=== PATIENT | female | born 1935 | race Caucasian/White ===

== ENCOUNTER 2016-09-26 11:49 | Emergency (ER) | payer MEDICARE, BC ==
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
--- OUTSIDE RECORDS SUMMARY | 2016-09-26 12:03 | XMS REPORT | Continuity of Care Document ---
:1935 Author Organization [facility] ([facility]) Address [address] [place] [address] Phone [phone] Care Team Providers Name Role Phone Eileen Miller Primary Care Provider [phone] Source Comments This disclosure is being made pursuant to the Care Everywhere program, applicable federal and state laws, and may not contain all informaitonavailable regarding this patient.[facility] ([facility]) Active Allergies and Adverse Reactions Allergen Noted Date Severity Reactions Comments Acetaminophen 10/07/2012 Nausea & Vomiting Only with the 500 mg tabs/daughter Hydromorphone 01/28/2013 OTHER Clinician reports acute delirium Morphine 05/27/2012 Rash Penicillins 05/27/2012 Rash Current Medications Prescription Sig. Disp. Refills Start Date End Date Status calcitriol 0.25 mcg Take 0.25 mcg by Active capsule mouth 3 times weekly. Cholecalciferol, Take 10,000 Units by Active Vitamin D3, (MAXIMUM mouth every week. D3) 10,000 unit cap simvastatin 20 mg Take 20 mg by mouth Active tablet every evening. tamsulosin (FLOMAX) Take 0.4 mg by mouth Active 0.4 mg ER capsule daily. PARoxetine (PAXIL) 20 Take 20 mg by mouth Active mg tablet daily. zolpiDEM 10 mg tablet Take by mouth at Active bedtime as needed. Indications: SLEEP-ONSET INSOMNIA amLODIPine 5 mg tablet Take 5 mg by mouth 2 Active times daily. mirtazapine 15 mg Take 15 mg by mouth Active tablet at bedtime as needed. multivitamin tablet Take 1 Tab by mouth Active every Friday, Friday, Friday. docusate 100 mg Take 1 Cap by mouth 2 60 Cap 1 01/26/2013 Active capsule times daily. Indications: CONSTIPATION metoPROLol tartrate 25 Take 1 Tab by mouth 60 Tab 1 01/26/2013 Active mg tablet every 12 hours. Indications: Afib sennosides 8.6 mg Take 1 Tab by mouth 30 Tab 1 01/26/2013 Active tablet daily. Indications: CONSTIPATION warfarin 5 mg tablet Take 1 Tab by mouth 30 Tab 1 01/26/2013 Active daily. Indications: Afib lisinopril 40 mg Take 40 mg by mouth Active tablet daily. pantoprazole 40 mg EC Take 40 mg by mouth Active tablet daily. potassium citrate 10 Take 1 Tab by mouth 2 60 Tab 11 09/15/2013 Active mEq XR tablet times daily. Indications: CALCIUM OXALATE RENAL CALCULI gabapentin 300 mg Take 300 mg by mouth Active capsule 3 times daily ipratropium 0.5 mg/2.5 Use 2.5 mL by Active mL nebulizer solution inhalation every 4 hours as needed Active Problems Problem Noted Date CKD (chronic kidney disease) 03/12/2013 Hyperparathyroidism 03/12/2013 Wound, open, abdominal wall, anterior 02/16/2013 Small bowel obstruction due to postoperative adhesions 02/16/2013 Diarrhea 02/16/2013 Open wound of abdominal wall, anterior, complicated 01/30/2013 Wound infection after surgery 01/27/2013 Cellulitis 01/27/2013 Atrial fibrillation 01/24/2013 Delirium 01/24/2013 Ureteral stricture 01/20/2013 Nephrolithiasis 06/24/2012 Solitary kidney, acquired 06/24/2012 Overview: Left side functional HTN (hypertension) 06/24/2012 Hypercholesterolemia 06/24/2012 Social History Tobacco Use Types Packs/Day Years Used Date Former Smoker Cigarettes Smokeless Tobacco: Never Used Tobacco Cessation:Counseling Given: Yes Comments: Alcohol Use Drinks/Week oz/Week Comments No Last Filed Vital Signs Vital Sign Reading Time Taken Blood Pressure 176/79 04/24/2016 2:18 PM HEATER FURNACE Pulse 101 04/24/2016 2:18 PM HEATER FURNACE Temperature 35.8 C (96.4 F) 04/24/2016 2:18 PM HEATER FURNACE Respiratory Rate 18 02/16/2013 8:00 AM CDT Height 1.52 m (4' 11.84") 04/24/2016 2:18 PM HEATER FURNACE Weight 85.6 kg (188 lb 11.4 oz) 04/24/2016 2:18 PM HEATER FURNACE Body Mass Index 37.05 04/24/2016 2:18 PM HEATER FURNACE Oxygen Saturation 95% 02/16/2013 8:00 AM CDT Plan of Care Health Maintenance Due Date Last Done Comments Hepatitis B Vaccine (1 of 3 - Primary Series) 1935 Tdap Vaccine 1948 Td Vaccine 12/11/1955 Mammogram 1977 Colonoscopy 1987 Zoster Vaccine 1997 Osteoporosis Screening (DXA Bone Density) 2002 Pneumococcal Vaccine (1 of 2 - PCV13) 2002 Influenza Vaccine: Seasonal (#1) 12/04/2015 Lipid Disorder Screening 01/24/2018 01/24/2013 Results from Last 3 Months Not on file
[2016-09-26] MEDS ORDERED: ACETAMINOPHEN 325 MG TABLET PO ONE (12:54)
[2016-09-26] MEDS ORDERED: ACETAMINOPHEN 325 MG TABLET ONE (12:56)
[2016-09-26 13:35] VITALS: BP 150/90
== END 2016-09-26 14:32 | disposition home or self-care (01) ==
LOC: ER 11:49
PROC: 0JQ10ZZ Repair Face Subcutaneous Tissue and Fascia, Open Approach (ICD-10-PCS; principal; 2016-09-26)
DX: S01.81XA Laceration without foreign body of other part of head, initial encounter (principal); W01.0XXA Fall on same level from slipping, tripping and stumbling without subsequent striking against object, initial encounter; Y93.01 Activity, walking, marching and hiking; Y92.008 Other place in unspecified non-institutional (private) residence as the place of occurrence of the external cause; Z87.440 Personal history of urinary (tract) infections; Z85.41 Personal history of malignant neoplasm of cervix uteri

== ENCOUNTER 2016-10-01 14:09 | Emergency (ER) | payer MEDICARE, BC ==
[2016-10-01 14:17] VITALS: BP 152/110
--- OUTSIDE RECORDS SUMMARY | 2016-10-01 15:02 | XMS REPORT | Continuity of Care Document ---
:1935 Author Organization [facility] ([facility]) Address [address] [place] [address] Phone [phone] Care Team Providers Name Role Phone Eileen Miller Primary Care Provider [phone] Source Comments This disclosure is being made pursuant to the Care Everywhere program, applicable federal and state laws, and may not contain all informaitonavailable regarding this patient.[facility] ([facility]) Active Allergies and Adverse Reactions Allergen [...] Taken Blood Pressure 176/79 04/24/2016 2:18 PM RESTAURANT RECRUITER Pulse 101 04/24/2016 2:18 PM RESTAURANT RECRUITER Temperature 35.8 C (96.4 F) 04/24/2016 2:18 PM RESTAURANT RECRUITER Respiratory Rate 18 02/16/2013 8:00 AM CDT Height 1.52 m (4' 11.84") 04/24/2016 2:18 PM RESTAURANT RECRUITER Weight 85.6 kg (188 lb 11.4 oz) 04/24/2016 2:18 PM RESTAURANT RECRUITER Body Mass Index 37.05 04/24/2016 2:18 PM RESTAURANT RECRUITER Oxygen Saturation 95% 02/16/2013 8:00 AM CDT [...]
== END 2016-10-01 14:29 | disposition home or self-care (01) ==
LOC: ER 14:09
DX: Z48.02 Encounter for removal of sutures (principal)

== ENCOUNTER 2017-04-03 11:46 | Emergency (ER) | payer MEDICARE, BC ==
--- NOTE | 2017-04-03 13:10 | ERNOTE ---
Medical Problem HPI - General Chief Complaint: General Assessment Time Seen by Provider: 04/03/17 13:10 - Immun/Allergies/Home Medications Immunizations: IMMUNIZATION HX Immunizations Up to Date Yes History of Influenza Vaccine Yes Hx Pneumococcal Vaccination Yes Allergies/Adverse Reactions: Allergies morphine Adverse Reaction (Intermediate, Verified 09/26/16 11:57) Hives Penicillins Adverse Reaction (Intermediate, Verified 09/26/16 11:57) Hives acetaminophen [From Tylenol Extra Strength] Adverse Reaction (Mild, Verified 11:57) GI UPSET EXTRA STRENGTH CAUSES GI UPSET, CAN TOLERATE REG STRENGTH Tetanus Vaccines and Toxoid [Tetanus] Adverse Reaction (Mild, Verified 09/26/16 11:57) Hives Home Medications: HOME MEDICATIONS Multivit-Min/FA/Lycopen/Lutein [[facility]] 1 tab PO DAILY tablet 11/16/14 [Last Taken Unknown] Pantoprazole Sodium 40 mg PO DAILY #0 11/16/14 [Last Taken 08/19/15 09:00] Simvastatin [Zocor] 20 mg PO HS #0 11/16/14 [Last Taken 08/18/15] amLODIPine BESYLATE [Norvasc] 5 mg PO BID #0 11/16/14 [Last Taken Unknown] Aspirin [Aspirin EC] 81 mg PO DAILY 08/19/15 [Last Taken 08/19/15 09:00] Donepezil HCl [Aricept] 5 mg PO DAILY 08/19/15 [Last Taken 08/19/15 09:00] Gabapentin [Neurontin] 300 mg PO HS 08/19/15 [Last Taken 08/18/15 21:00] PARoxetine HCL [Paxil] 10 mg PO DAILY 08/19/15 [Last Taken 08/19/15] Warfarin Sodium [Coumadin] 5 mg PO DAILY 08/20/15 [Last Taken Unknown] Acetaminophen [Tylenol] 650 mg PO QID PRN 08/31/15 [Last Taken Unknown] Omeprazole [Prilosec] 40 mg PO DAILY #30 cap 08/31/15 [Last Taken Unknown] Ondansetron HCl [Zofran] 4 mg PO Q4H PRN 04/02/16 [Last Taken Unknown] Cholestyramine/Aspartame [Questran Light Packet] 4 gm PO BIDWM #60 packet 11/30/ 16 [Last Taken Unknown] clonazePAM [Klonopin] 0.25 mg PO HS #.1 tablet 04/03/16 [Last Taken Unknown] - History of Present History Narrative: Patient was at the dentist and found to have elevated blood pressures and was told to come to the ER. Her blood pressures are better now, she denies any headache or other symptoms Review of Systems - Review of Systems Constitutional: Absent: recent illness, fever EYE: Absent: vision changes ENT: Absent: nose congestion, sore throat Respiratory: Absent: shortness of breath, cough Cardiology: Absent: chest pain Gastrointestinal/Abdominal: Absent: nausea, vomiting, abdominal pain Genitourinary: Present: no symptoms reported Musculoskeletal: Absent: back pain Skin: Absent: rash Neurological: Absent: headache, weakness, numbness - Patient's Past Medical History Patient History - Medical: Hypothyroidism, Renal Disease, GERD, Headache, Hypothyroidism, Migraines, Osteoarthritis, Renal Disease, UTI'S Patient History - Cardiac/Respiratory: Hypertension Patient History - Cancer: Cervical Patient History - Surgical Procedures: Cholecystectomy, Hysterectomy, Total Knee Replacement, Other, Other Patient History - Other: None - Family History Mother Family History - Medical: Family History - Cardiac/Respiratory: Hypertension, Myocardial Infarction Father Family History - Medical: Family History - Cardiac/Respiratory: Hypertension, Myocardial Infarction - Social History Living Situations: home Abuse History: No History of abuse Psych History: No pertinent hx, Current tx/ever been on anti-depressants or anti -anxiety meds Smoking Status: Never smoker Have you smoked in the past 12 months: No Do you dip or chew tobacco: No Alcohol Use: none Drug Use: none - Immunizations Immunizations Up to Date: Yes Hx Pneumococcal Vaccination: Yes History of Influenza Vaccine: Yes Physical Exam - Physical Exam General Appearance: Present: wd/wn, alert, no apparent distress, obese Respiratory: Present: no respiratory distress, normal breath sounds, no accessory muscle use, lungs clear Cardiovascular/Chest: Present: regular rate, rhythm, no murmur Neurological Exam: Present: alert, oriented, normal mood/affect Skin Exam: Present: normal color, warm/dry ED Progress - Vital Signs Patient's Vital Signs:: I have reviewed the patient's vital signs. Vital Signs: Vital Signs 04/03/17 11:56 Temperature 36.5 C Pulse Rate 100 Respiratory 16 Rate Blood Pressure 154/96 O2 Sat by Pulse 98 Oximetry - Progress/Reassessment Chief Complaint: General Assessment Departure Clinical Impression: Hypertension Qualifiers: Hypertension type: essential hypertension Qualified Code(s): I10 - Essential ( primary) hypertension - Departure Disposition: Home self-care Condition: Good Instructions: Hypertension, [id number] Additional Instructions: call your doctor for follow up Referrals: Eileen Miller MD [Primary Care Provider] -
[2017-04-03 13:22] VITALS: BP 149/89
== END 2017-04-03 13:22 | disposition home or self-care (01) ==
LOC: ER 11:46
DX: I10 Essential (primary) hypertension (principal); Z87.440 Personal history of urinary (tract) infections; Z85.41 Personal history of malignant neoplasm of cervix uteri

== ENCOUNTER 2020-07-23 16:58 | Observation (INO) ==
[2020-07-23] MEDS ORDERED: NORMAL SALINE 1,000 ML IV ONE (17:09)
[2020-07-23 17:30] LABS: Hematocrit 39.7 % (37.0-47.0); Hemoglobin 12.1 gm/dL (12.5-16.0); Mean Cell Volume 96.8 fl (78-100); Mean Corpuscular Hemoglobin 29.5 pg (27-31); Mean Corpuscular Hgb Conc 30.5 g/dl (32-36); Mean Platelet Volume 9.5 fl (8-12.5); Neutrophil # 3.3 K/mm3 (1.3-6.0); Neutrophil % 53.5 % (42-75.0); Platelet Count 194 K/mm3 (150-450); Red Cell Distribution Width 15.1 % (11.5-14.0); White Blood Count 6.1 K/mm3 (4.0-10.5)
--- NOTE | 2020-07-23 17:33 | ERNOTE ---
Back Pain ER HPI Date of Service: 07/23/20 Presenting Symptoms: hx chronic back pain Time Seen by Provider: 07/23/20 16:59 Source: patient Exam Limitations: clinical condition Immunizations: IMMUNIZATION HX Immunizations Up to Date Yes History of Influenza Vaccine Yes Hx Pneumococcal Vaccination Yes Allergies/Adverse Reactions: Allergies Penicillins Allergy (Intermediate, Verified 07/11/20 15:37) Hives Tetanus Vaccines and Toxoid [Tetanus] Allergy (Mild, Verified 07/11/20 15:37) Hives diphenhydramine [From Tylenol PM] Allergy (Verified 07/11/20 15:37) Can take regular tylenol but not PM, not allergic to Benadryl, only Tylenol PM morphine Adverse Reaction (Intermediate, Verified 07/11/20 15:37) Other Patient reports she "goes bananas" Home Medications: HOME MEDICATIONS acetaminophen 500 mg tablet 1,000 mg PO BID tab 01/29/18 [Last Taken Unknown] bisacodyl 10 mg rectal suppository 10 mg [place] DAILY PRN #5 ea 08/16/19 [Last Taken Unknown] polyethylene glycol 3350 17 gram/dose oral powder 17 g PO DAILY PRN #119 g 08/15 [Last Taken Unknown] sennosides 8.6 mg tablet 8.6 mg PO HS PRN #30 tab 08/16/19 [Last Taken Unknown] oxyCODONE HCL/ACETAMINOPHEN [Percocet 5 MG/325 MG] 1 tab PO Q4H PRN #10 tab 12/20/19 [Last Taken Unknown] melatonin 1 mg tablet 2 mg PO HS PRN #180 tab 12/23/19 [Last Taken Unknown] clonazepam 0.5 mg tablet 0.25 mg PO DAILY tab 01/20/20 [Last Taken Unknown] ciprofloxacin HCl 500 mg tablet 500 mg PO BID #14 tab 04/24/20 [Last Taken Unknown] clindamycin HCl 150 mg capsule 300 mg PO QID cap 04/24/20 [Last Taken Unknown] warfarin 2.5 mg tablet 2.5 mg PO Q OTHER DAY #30 tab 05/31/20 [Last Taken Unknown] warfarin 3 mg tablet 3 mg PO Q OTHER DAY #30 tab 05/31/20 [Last Taken Unknown] aspirin 81 mg tablet,delayed release 81 mg PO DAILY #30 tab 06/14/20 [Last Taken Unknown] citalopram 20 mg tablet 20 mg PO QAM #90 tab 06/14/20 [Last Taken Unknown] donepezil 5 mg tablet 5 mg PO QAM #30 tab 06/14/20 [Last Taken Unknown] famotidine 20 mg tablet 20 mg PO DAILY #30 tab 06/14/20 [Last Taken Unknown] furosemide 20 mg tablet 20 mg PO QAM PRN #90 tab 06/14/20 [Last Taken Unknown] gabapentin 300 mg capsule 300 mg PO HS #90 cap 06/14/20 [Last Taken Unknown] mirtazapine 15 mg tablet 15 mg PO QAM #90 tab 06/14/20 [Last Taken Unknown] simvastatin 20 mg tablet 20 mg PO HS #90 tab 06/14/20 [Last Taken Unknown] trazodone 50 mg tablet 50 mg PO HS #90 tab 06/14/20 [Last Taken Unknown] metoprolol succinate 100 mg tablet,extended release 24 hr 100 mg PO QAM #30 tab 06/15/20 [Last Taken Unknown] potassium citrate 10 mEq (1,080 mg) tablet,extended release 10 meq PO BID #60 tab 06/15/20 [Last Taken Unknown] tamsulosin 0.4 mg capsule 0.4 mg PO DAILY #30 cap 06/15/20 [Last Taken Unknown] HYDROcodone/ACETAMINOPHEN [Hydrocodon-Acetaminophen 5-325] 1 ea PO Q6H PRN #24 tab 07/11/20 [Last Taken Unknown] amlodipine 5 mg tablet 5 mg PO BID #30 tab 07/13/20 [Last Taken Unknown] Narrative: Patient presents to the ED for left low back pain. THis has been a problem for her for weeks but has been worse over the last couple of hours. Was seen here for this same thing on the of this month and had extensive w/u. Has been having daily, on-going pain ever since but worse today. No fall or injury. No acute focal N/T/W. Pain worse with movement. Denies injury. No CP or SOB. No fever. No trouble with urination. EMS called, 100mcg Sublimaze given. Timing: Reports: constant Quality/Severity: Reports: severe Location of pain: Reports: lower back. Denies: radiating to rt thigh/leg, radiating to lf thigh/leg Activities at Onset: Reports: none Recent Injury?: Reports: no Possible Precipitating Factor: Reports: none Modifying Factors - (Improves): Reports: nothing Modifying Factors - (Worsens): Reports: movement to right, movement to left Associated Symptoms: Denies: fever/chills, constipation/incontinence, numbess/weakness in legs Prior Treament: Reports: recently seen, similar symptoms before Review of Systems - Review of Systems Constitutional: Absent: fever ENT: Absent: sore throat Respiratory: Absent: shortness of breath Cardiology: Absent: chest pain Gastrointestinal/Abdominal: Absent: abdominal pain Genitourinary: Absent: dysuria Musculoskeletal: Present: See HPI Neurological: Absent: weakness All Other Systems: All systems neg except as marked Medical History (Last Reviewed 07/23/20 @ 17:31 by Brandon Rodriguez MD) Abnormal EKG Onset Date: ~08/12/14 Atrial fibrillation Onset Date: ~02/23/13 Cervical neoplasm Onset Date: Unknown Chronic renal failure, stage 3 (moderate) Onset Date: ~02/05/12 Colonic polyp Onset Date: Unknown Constipation Onset Date: ~07/09/12 DJD (degenerative joint disease) Onset Date: Unknown right knee Depressive disorder Onset Date: ~07/09/12 Dysphagia Onset Date: ~05/17/13 Essential hypertension Onset Date: Unknown Headache Onset Date: ~09/14/12 Humerus fracture Onset Date: Unknown humeral head fracture- right Hydronephrosis Onset Date: ~06/2012 Hyperlipemia Onset Date: Unknown Influenza vaccine refused wants to receive at later date. 02/17/18 Joint pain Onset Date: Unknown Kidney stone Onset Date: ~2012 left ureteral stone Kidney stones Onset Date: ~2012 left ureteral stone Knee pain Onset Date: ~10/11/14 s/p replacement Leg pain Onset Date: ~02/05/12 Malignant neoplasm of uterus Onset Date: Unknown Nausea Onset Date: ~06/25/12 Osteoarthritis Onset Date: Unknown Sciatica Onset Date: Unknown Sciatica Onset Date: Unknown Spinal stenosis Onset Date: Unknown Urinary tract infection Onset Date: ~09/14/12 Uterine neoplasm Onset Date: Unknown Surgical History: Surgical History (Last Reviewed 07/23/20 @ 17:31 by Brandon Rodriguez MD) H/O arthroscopic knee surgery Onset Date: ~08/22/14 right knee arthroscopic by Dr. Bryan H/O colonoscopy Onset Date: Unknown approx. 7 yrs ago per pt H/O cystoscopy Onset Date: ~2003 2003, 10/28/2012 H/O dilation and curettage Onset Date: Unknown H/O nephrolithotomy with removal of calculi Onset Date: ~1984 1984 and 1985 H/O ureterostomy Onset Date: ~2012 with dilation and stent placement History of cholecystectomy Onset Date: ~1981 History of hysterectomy Onset Date: ~1967 S/P ureteral stent placement Onset Date: ~2012 x 2 Family History: Family History (Last Reviewed 07/23/20 @ 17:31 by Brandon Rodriguez MD) Mother Hypertension Father Hypertension Social History: (Last Reviewed 07/23/20 @ 17:31 by Brandon Rodriguez MD) Social History: adopted: No foster care: No group home: No Marital status: / lives independently: No household members: family caregiver/support person: No current occupational status: retired Service: No Tobacco: Smoking Status: Former smoker Alcohol: alcohol intake: former Substance Use: substance use type: does not use Dietary Habits: caffeine: Yes Physical Exam - Physical Exam General Appearance: Present: alert, no apparent distress Head Exam: Present: normal inspection, no evidence of injury Eye Exam: Normal inspection: bilateral, PERRL: bilateral Ears, Nose, Throat: Present: normal ENT inspection Neck: Present: normal inspection Respiratory: Present: no respiratory distress, normal breath sounds Cardiovascular/Chest: Present: normal peripheral pulses, bradycardia Gastrointestinal/Abdominal: Present: normal bowel sounds, nontender, nondistended, soft Back Exam: Present: CVA tenderness (L), other - significant muscular tendneress with palpation of left low back. Absent: vertebral tenderness Extremity Exam: Present: non-tender Neurological Exam: Present: alert, other - generalized weakness but no acute unilateral focal motor or sensory deficits Skin Exam: Present: normal color, warm/dry Progress - Results and Orders Patient's Lab Results:: I have reviewed the patient's lab results. - Vital Signs Patient's Vital Signs:: I have reviewed the patient's vital signs. Vital Signs: Vital Signs 07/23/20 17:01 Temperature 36.5 C Pulse Rate 59 L Respiratory Rate 16 Blood Pressure 100/55 O2 Sat by Pulse Oximetry 96 - EKG EKG #1 EKG: atrial fibrillation EKG read: Interp. by me EKG Comments: A fib rate [address] ectopy. Non-specific ST/T wave changes, no STEMI - CT/Ultrasound CT/Ultrasound Narrative: I reviewed the official radiology report for CT abd/pelvis - Progress/Reassessment Chief Complaint: Back Pain Progress Note-Subjective: 07/23/20 18:45 patient has intractable low back pain, no suggestion of cauda equina syndrome. She is unable to ambulate here d/t pain despite repeated doses of Fentanyl. Given she lives at home alone, she cannot go home. She would be agreeable to skilled if necessary. She cannot go home d/t inability to ambulate. Patient and daughter agreeable. Departure Clinical Impression: Intractable low back pain, Gait instability, Chronic renal failure - Departure Disposition: Still a patient Condition: Fair Referrals: Eileen Miller MD [Primary Care Provider] -
[2020-07-23 17:43] LABS: Urine Appearance Clear (CLEAR); Urine Bilirubin Negative (NEGATIVE); Urine Blood Negative /ul (NEGATIVE); Urine Color Yellow; Urine Ketone Negative (NEGATIVE); Urine Specific Gravity 1.015 SP.GR. (1.005-1.010); Urine pH 5.5 pH (5.0-7.0)
[2020-07-23 17:44] LABS: Urine Bacteria None Seen; Urine Nitrite Negative (NEGATIVE); Urine Protein Negative (NEGATIVE); Urine RBC None Seen /hpf (0-5); Urine Urobilinogen Normal (NORMAL); Urine WBC None Seen /hpf (0-5)
[2020-07-23 17:47] LABS: ALT 46 U/L (19-67); AST 39 U/L (0-48); Albumin * 3.1 gm/dl (3.4-5.0); Alkaline Phosphatase * 91 U/L (50-170); Anion Gap 14.2 mmol/L (6.8-13.8); BUN/Creatinine Ratio 12.9 (9.0-21.6); Bilirubin, Total 0.7 mg/dL (0.0-1.1); Blood Urea Nitrogen 21 mg/dL (3-23); Ca. Corrected For Albumin 9.5 mg/dL (8.4-10.2); Calcium * 9.1 mg/dL (7.9-10.9); Carbon Dioxide 25.2 mmol/L (24-32.6); Chloride 108 mmol/L (97-106); Glucose * 117 mg/dL (70-110); Lipase 86 U/L (73-393); Potassium 4.4 mmol/L (3.4-4.6); Sodium 143 mmol/L (132-142); Total Protein 7.4 gm/dL (6.2-8.2); Troponin I Less than 0.017 ng/mL (0.00-0.10)
[2020-07-23 18:01] LABS: INR 2.12 INR (0.92-1.08); Prothrombin Time (Patient) 21.3 Seconds (9.1-10.7)
[2020-07-23] MEDS ORDERED: fentaNYL CITRATE/PF 50 MCG/ML AMPUL IV ONE ×2 (18:21→18:38)
[2020-07-24] MEDS ORDERED: FUROSEMIDE 20 MG TABLET PO PRN (08:24)
[2020-07-24] MEDS ORDERED: POLYETHYLENE GLYCOL 3350 119 GM BTL PO PRN (08:24)
[2020-07-24] MEDS ORDERED: clonazePAM 0.5 MG TABLET PO PRN (08:24)
[2020-07-24] MEDS ORDERED: HYDROcodone/ACETAMINOPHEN 1 EACH TABLET PO PRN (08:24)
[2020-07-24] MEDS ORDERED: MELATONIN 3,000 MCG TABLET PO PRN (08:46)
[2020-07-24] MEDS ORDERED: ACETAMINOPHEN 500 MG TABLET PO PRN (08:51)
[2020-07-24] MEDS ORDERED: ASPIRIN 81 MG TABLET.DR PO SCH (09:00)
[2020-07-24] MEDS ORDERED: MIRTAZAPINE 15 MG TABLET PO SCH (09:00)
[2020-07-24] MEDS ORDERED: CITALOPRAM HYDROBROMIDE 20 MG TABLET PO SCH (09:00)
[2020-07-24] MEDS ORDERED: METOPROLOL SUCCINATE 100 MG TABLET.SA PO SCH (09:00)
[2020-07-24] MEDS ORDERED: FAMOTIDINE 20 MG TABLET PO SCH (09:00)
[2020-07-24] MEDS ORDERED: DONEPEZIL HCL 5 MG TABLET PO SCH (09:00)
[2020-07-24] MEDS ORDERED: ACETAMINOPHEN 500 MG TABLET PO SCH (09:00)
[2020-07-24] MEDS ORDERED: amLODIPine BESYLATE 5 MG TABLET PO SCH (09:00)
[2020-07-24] MEDS ORDERED: POTASSIUM BICARBONATE/CIT AC 25 MEQ TABLET.EFF PO SCH (09:30)
--- NOTE | 2020-07-24 11:52 | HPDIS ---
Chief Complaint - Chief Complaint Date of Service: 07/24/20 Time of Service: 08:00 Chief Complaint: Weakness, low back pain Medical History (Last Reviewed 07/23/20 @ 21:01 by Shavon Michael RN) Abnormal EKG Onset Date: ~08/12/14 Atrial fibrillation Onset Date: ~02/23/13 Cervical neoplasm Onset Date: Unknown Chronic renal failure, stage 3 (moderate) Onset Date: ~02/05/12 Colonic polyp Onset Date: Unknown Constipation Onset Date: ~07/09/12 DJD (degenerative joint disease) Onset Date: Unknown right knee Depressive disorder Onset Date: ~07/09/12 Dysphagia Onset Date: ~05/17/13 Essential hypertension Onset Date: Unknown Headache Onset Date: ~09/14/12 Humerus fracture Onset Date: Unknown humeral head fracture- right Hydronephrosis Onset Date: ~06/2012 Hyperlipemia Onset Date: Unknown Influenza vaccine refused wants to receive at later date. 02/17/18 Joint pain Onset Date: Unknown Kidney stone Onset Date: ~2012 left ureteral stone Kidney stones Onset Date: ~2012 left ureteral stone Knee pain Onset Date: ~10/11/14 s/p replacement Leg pain Onset Date: ~02/05/12 Malignant neoplasm of uterus Onset Date: Unknown Nausea Onset Date: ~06/25/12 Osteoarthritis Onset Date: Unknown Rotator cuff arthropathy of right shoulder Sciatica Onset Date: Unknown Sciatica Onset Date: Unknown Spinal stenosis Onset Date: Unknown Urinary tract infection Onset Date: ~09/14/12 Uterine neoplasm Onset Date: Unknown Surgical History: Surgical History (Last Reviewed 07/23/20 @ 21:01 by Shavon Michael RN) H/O arthroscopic knee surgery Onset Date: ~08/22/14 right knee arthroscopic by Dr. Bryan H/O colonoscopy Onset Date: Unknown approx. 7 yrs ago per pt H/O cystoscopy Onset Date: ~2003 2003, 10/28/2012 H/O dilation and curettage Onset Date: Unknown H/O nephrolithotomy with removal of calculi Onset Date: ~1984 1984 and 1985 H/O ureterostomy Onset Date: ~2012 with dilation and stent placement History of cholecystectomy Onset Date: ~1981 History of hysterectomy Onset Date: ~1967 S/P ureteral stent placement Onset Date: ~2012 x 2 Family History: Family History (Last Reviewed 07/23/20 @ 21:01 by Shavon Michael RN) Mother Hypertension Father Hypertension Social History: (Last Reviewed 07/23/20 @ 21:01 by Shavon Michael RN) Social History: adopted: No foster care: No chcf: No Marital status: / lives independently: No household members: family caregiver/support person: No current occupational status: retired Service: No Tobacco: Smoking Status: Former smoker Alcohol: alcohol intake: former Substance Use: substance use type: does not use Dietary Habits: caffeine: Yes Immunizations: IMMUNIZATION HX Immunizations Up to Date Yes History of Influenza Vaccine Yes Hx Pneumococcal Vaccination Yes Allergies/Adverse Reactions: Allergies Allergy/AdvReac Type Severity Reaction Status Date / Time Penicillins Allergy Intermediate Hives Verified 07/11/20 15:37 Tetanus Vaccines and Toxoid Allergy Mild Hives Verified 07/11/20 15:37 [Tetanus] diphenhydramine Allergy Verified 07/11/20 15:37 [From Tylenol PM] morphine AdvReac Intermediate Other Verified 07/11/20 15:37 Home Medications: HOME MEDICATIONS acetaminophen 500 mg tablet 1,000 mg PO BID tab 01/29/18 [Last Taken Unknown] bisacodyl 10 mg rectal suppository 10 mg ID DAILY PRN #5 ea 08/16/19 [Last Taken Unknown] sennosides 8.6 mg tablet 8.6 mg PO HS PRN #30 tab 08/16/19 [Last Taken Unknown] melatonin 1 mg tablet 2 mg PO HS PRN #180 tab 12/23/19 [Last Taken Unknown] clonazepam 0.5 mg tablet 0.25 mg PO DAILY tab 01/20/20 [Last Taken Unknown] warfarin 2.5 mg tablet 2.5 mg PO Q OTHER DAY #30 tab 05/31/20 [Last Taken Unknown] warfarin 3 mg tablet 3 mg PO Q OTHER DAY #30 tab 05/31/20 [Last Taken Unknown] aspirin 81 mg tablet,delayed release 81 mg PO DAILY #30 tab 06/14/20 [Last Taken Unknown] citalopram 20 mg tablet 20 mg PO QAM #90 tab 06/14/20 [Last Taken Unknown] donepezil 5 mg tablet 5 mg PO QAM #30 tab 06/14/20 [Last Taken Unknown] famotidine 20 mg tablet 20 mg PO DAILY #30 tab 06/14/20 [Last Taken Unknown] furosemide 20 mg tablet 20 mg PO QAM PRN #90 tab 06/14/20 [Last Taken Unknown] gabapentin 300 mg capsule 300 mg PO HS #90 cap 06/14/20 [Last Taken Unknown] mirtazapine 15 mg tablet 15 mg PO QAM #90 tab 06/14/20 [Last Taken Unknown] simvastatin 20 mg tablet 20 mg PO HS #90 tab 06/14/20 [Last Taken Unknown] trazodone 50 mg tablet 50 mg PO HS #90 tab 06/14/20 [Last Taken Unknown] metoprolol succinate 100 mg tablet,extended release 24 hr 100 mg PO QAM #30 tab 06/15/20 [Last Taken Unknown] potassium citrate 10 mEq (1,080 mg) tablet,extended release 10 meq PO BID #60 tab 06/15/20 [Last Taken Unknown] tamsulosin 0.4 mg capsule 0.4 mg PO DAILY #30 cap 06/15/20 [Last Taken Unknown] amlodipine 5 mg tablet 5 mg PO BID #30 tab 07/13/20 [Last Taken Unknown] HYDROcodone/ACETAMINOPHEN [Hydrocodone-Acetamin 5-325 mg] 1 ea PO Q6H PRN #24 tab 07/24/20 [Last Taken Unknown] HYDROcodone/ACETAMINOPHEN [Mat[place] 5-325] 1 ea PO Q6H PRN #60 tab 07/24/20 [Last Taken Unknown] Polyethylene Glycol 3350 [Miralax] 17 gm PO DAILY PRN btl 07/24/20 [Last Taken Unknown] Exam - Exam Vital Signs: Vital Signs - Last Taken Temp 36.7 C 07/24/20 09:56 Pulse 54 L 07/24/20 09:56 Resp 16 07/24/20 09:56 BP 144/79 07/24/20 09:56 Pulse Ox 96 07/24/20 09:56 Diagnostic Studies: Abnormal Lab Results 07/23/20 07/23/20 07/23/20 Range/Units 17:20 17:20 17:20 RBC 4.10 L (4.2-5.4) M/mm3 Hgb 12.1 L (12.5-16.0) gm/dL MCHC 30.5 L (32-36) g/dl RDW 15.1 H (11.5-14.0) % PT 21.3 H (9.1-10.7) Seconds INR (Anticoag Therapy) 2.12 H (0.92-1.08) INR Sodium 143 H (132-142) mmol/L Plasma Sodium 143 H (130-142) mmol/L Chloride 108 H (97-106) mmol/L Anion Gap 14.2 H (6.8-13.8) mmol/L Creatinine 1.63 H (0.4-1.4) mg/dL Est GFR (Non-Af Amer) 32 L (60-130) mL/min Random Glucose 117 H (70-110) mg/dL Albumin 3.1 L (3.4-5.0) gm/dl Laboratory Results WBC 6.1 K/mm3 (4.0-10.5) 07/23/20 17:20 RBC 4.10 M/mm3 (4.2-5.4) L 07/23/20 17:20 Hgb 12.1 gm/dL (12.5-16.0) L 07/23/20 17:20 Hct 39.7 % (37.0-47.0) 07/23/20 17:20 MCV 96.8 fl (78-100) 07/23/20 17:20 MCH 29.5 pg (27-31) 07/23/20 17:20 MCHC 30.5 g/dl (32-36) L 07/23/20 17:20 RDW 15.1 % (11.5-14.0) H 07/23/20 17:20 Plt Count 194 K/mm3 (150-450) 07/23/20 17:20 MPV 9.5 fl (8-12.5) 07/23/20 17:20 Immature Gran % (Auto) 0.30 % (0.001-0.429) 07/23/20 17:20 Immature Gran # (Auto) 0.02 K/mm3 (0.000-0.0310) 07/23/20 17:20 Neutrophils % 53.5 % (42-75.0) 07/23/20 17:20 Lymphocytes % 35.8 % (20-51) 07/23/20 17:20 Monocytes % 7.9 % (0.0-9) 07/23/20 17:20 Eosinophils % 2.0 % (0.0-3.0) 07/23/20 17:20 Basophils % 0.5 % (0.0-1.0) 07/23/20 17:20 Nucleated RBC % 0.0 k/mm3 (0-1) 07/23/20 17:20 Neutrophils # 3.3 K/mm3 (1.3-6.0) 07/23/20 17:20 Lymphocytes # 2.19 k/mm3 (1.5-3.5) 07/23/20 17:20 Monocytes # 0.5 k/mm3 (0.0-1.0) 07/23/20 17:20 Eosinophils # 0.1 k/mm3 (0.0-0.7) 07/23/20 17:20 Absolute Basophils 0.0 k/mm3 (0.0-0.1) 07/23/20 17:20 PT 21.3 Seconds (9.1-10.7) H 07/23/20 17:20 INR (Anticoag Therapy) 2.12 INR (0.92-1.08) H 07/23/20 17:20 Sodium 143 mmol/L (132-142) H 07/23/20 17:20 Plasma Sodium 143 mmol/L (130-142) H 07/23/20 17:20 Potassium 4.4 mmol/L (3.4-4.6) 07/23/20 17:20 Chloride 108 mmol/L (97-106) H 07/23/20 17:20 Carbon Dioxide 25.2 mmol/L (24-32.6) 07/23/20 17:20 Anion Gap 14.2 mmol/L (6.8-13.8) H 07/23/20 17:20 BUN 21 mg/dL (3-23) 07/23/20 17:20 Creatinine 1.63 mg/dL (0.4-1.4) H 07/23/20 17:20 Est GFR (Non-Af Amer) 32 mL/min (60-130) L 07/23/20 17:20 BUN/Creatinine Ratio 12.9 (9.0-21.6) 07/23/20 17:20 Random Glucose 117 mg/dL (70-110) H 07/23/20 17:20 Calcium 9.1 mg/dL (7.9-10.9) 07/23/20 17:20 Calcium Adj for Albumin 9.5 mg/dL (8.4-10.2) 07/23/20 17:20 Total Bilirubin 0.7 mg/dL (0.0-1.1) 07/23/20 17:20 AST 39 U/L (0-48) 07/23/20 17:20 ALT 46 U/L (19-67) 07/23/20 17:20 Alkaline Phosphatase 91 U/L (50-170) 07/23/20 17:20 Troponin I Less than 0.017 ng/mL (0.00-0.10) 07/23/20 17:20 Total Protein 7.4 gm/dL (6.2-8.2) 07/23/20 17:20 Albumin 3.1 gm/dl (3.4-5.0) L 07/23/20 17:20 Lipase 86 U/L (73-393) 07/23/20 17:20 Urine Color Yellow 07/23/20 17:10 Urine Appearance Clear (CLEAR) 07/23/20 17:10 Urine pH 5.5 pH (5.0-7.0) 07/23/20 17:10 Ur Specific [place] 1.015 SP.GR. (1.005-1.010) 07/23/20 17:10 Urine Protein Negative mg/dL (NEGATIVE) 07/23/20 17:10 Urine Glucose (UA) Negative mg/dL (NEGATIVE) 07/23/20 17:10 Urine Ketones Negative mg/dL (NEGATIVE) 07/23/20 17:10 Urine Blood Negative /ul (NEGATIVE) 07/23/20 17:10 Urine Nitrate Negative (NEGATIVE) 07/23/20 17:10 Urine Bilirubin Negative mg/dl (NEGATIVE) 07/23/20 17:10 Urine Urobilinogen Normal EU/dl (NORMAL) 07/23/20 17:10 Ur Leukocyte Esterase Negative /ul (NEGATIVE) 07/23/20 17:10 Urine RBC None seen /hpf (0-5) 07/23/20 17:10 Urine WBC None seen /hpf (0-5) 07/23/20 17:10 Ur Epithelial Cells None seen /hpf (0-5) 07/23/20 17:10 Urine Bacteria None seen (NONE) 07/23/20 17:10 Urine Culture Comments No culture indicated 07/23/20 17:10 SARS-CoV-2 (PCR) Not detected (NotDetected) 07/23/20 18:45 Assessment/Plan - Assessment/Plan (1) Intractable low back pain Problem: Acute (2) Memory loss or impairment Problem: Acute (3) Spinal stenosis of lumbar region Problem: Chronic Qualifiers: (4) Atrial fibrillation Problem: Chronic Qualifiers: (1) Intractable low back pain Problem: Acute (2) Memory loss or impairment Problem: Acute (3) Spinal stenosis of lumbar region Problem: Chronic Qualifiers: Neurogenic claudication status: without neurogenic claudication Qualified Code(s): M48.061 - Spinal stenosis, lumbar region without neurogenic claudication (4) Atrial fibrillation Problem: Chronic Qualifiers: Date of Discharge:: 07/24/20 Hospital Course: Hali is an 84 yo female admitted for intractable low back pain secondary to spinal stenosis of L4/5. She has been getting weaker at home with increased pain. She presented to the ER and was admitted for intractable pain and difficulty ambulating. PT was consulted and she was started on hydrocodone for pain control. resident care technician discussed with [facility] for admission for strengthening and she was accepted. She will be discharged to [facility] with PT, OT, and ST for cognitive evaluation. Procedures Performed: none Results and Findings: Lab Pending Results 07/23/20 17:10: Urine Color Yellow, Urine Appearance Clear, Urine pH 5.5, Ur Specific [place] 1.015, Urine Protein Negative, Urine Glucose (UA) Negative, Urine Ketones Negative, Urine Blood Negative, Urine Nitrate Negative, Urine Bilirubin Negative, Urine Urobilinogen Normal, Ur Leukocyte Esterase Negative, Urine RBC None seen, Urine WBC None seen, Ur Epithelial Cells None seen, Urine Bacteria None seen, Urine Culture Comments No culture indicated 07/23/20 17:20: WBC 6.1, RBC 4.10 L, Hgb 12.1 L, Hct 39.7, MCV 96.8, MCH 29.5, MCHC 30.5 L, RDW 15.1 H, Plt Count 194, MPV 9.5, Immature Gran % (Auto) 0.30, Immature Gran # (Auto) 0.02, Neutrophils % 53.5, Lymphocytes % 35.8, Monocytes % 7.9, Eosinophils % 2.0, Basophils % 0.5, Nucleated RBC % 0.0, Neutrophils # 3.3, Lymphocytes # 2.19, Monocytes # 0.5, Eosinophils # 0.1, Absolute Basophils 0.0 07/23/20 17:20: Sodium 143 H, Plasma Sodium 143 H, Potassium 4.4, Chloride 108 H, Carbon Dioxide 25.2, Anion Gap 14.2 H, BUN 21, Creatinine 1.63 H, Est GFR (No n-Af Amer) 32 L, BUN/Creatinine Ratio 12.9, Random Glucose 117 H, Calcium 9.1, Calcium Adj for Albumin 9.5, Total Bilirubin 0.7, AST 39, ALT 46, Alkaline Phosphatase 91, Troponin I Less than 0.017, Total Protein 7.4, Albumin 3.1 L, Lipase 86 07/23/20 17:20: PT 21.3 H, INR (Anticoag Therapy) 2.12 H 07/23/20 18:45: SARS-CoV-2 (PCR) Not detected Discharge Location: [facility] Disposition: SNF Condition: Fair Level of Care: SNF Discharge Activity: Activity as tolerated Discharge Diet: General/regular food Detention Therapy: Physical Therapy, Occupation Therapy, Speech Therapy Referrals: Eileen Miller MD [Primary Care Provider] - One Week (Video visits) Problem Oriented Discharge Instructions to Patient/Family: Spinal Stenosis, [id number] Additional Patient Instructions (free text): [facility]- PT, OT to evaluate and treat. Prescriptions (Any new or edited meds): HYDROcodone/ACETAMINOPHEN [Hydrocodone-Acetamin 5-325 mg] 1 ea PO Q6H PRN #24 tab PRN Reason: Pain HYDROcodone/ACETAMINOPHEN [Mat[place] 5-325] 1 ea PO Q6H PRN #60 tab PRN Reason: Pain Transmission Status: Sent to [facility] Complete Home Medications List: Complete Home Medication List: acetaminophen 500 mg tablet 1,000 mg PO BID tab 01/29/18 bisacodyl 10 mg rectal suppository 10 mg ID DAILY PRN #5 ea 08/16/19 sennosides 8.6 mg tablet 8.6 mg PO HS PRN #30 tab 08/16/19 melatonin 1 mg tablet 2 mg PO HS PRN #180 tab 12/23/19 clonazepam 0.5 mg tablet 0.25 mg PO DAILY tab 01/20/20 warfarin 2.5 mg tablet 2.5 mg PO Q OTHER DAY #30 tab 05/31/20 warfarin 3 mg tablet 3 mg PO Q OTHER DAY #30 tab 05/31/20 aspirin 81 mg tablet,delayed release 81 mg PO DAILY #30 tab 06/14/20 citalopram 20 mg tablet 20 mg PO QAM #90 tab 06/14/20 donepezil 5 mg tablet 5 mg PO QAM #30 tab 06/14/20 famotidine 20 mg tablet 20 mg PO DAILY #30 tab 06/14/20 furosemide 20 mg tablet 20 mg PO QAM PRN #90 tab 06/14/20 gabapentin 300 mg capsule 300 mg PO HS #90 cap 06/14/20 mirtazapine 15 mg tablet 15 mg PO QAM #90 tab 06/14/20 simvastatin 20 mg tablet 20 mg PO HS #90 tab 06/14/20 trazodone 50 mg tablet 50 mg PO HS #90 tab 06/14/20 metoprolol succinate 100 mg tablet,extended release 24 hr 100 mg PO QAM #30 tab 06/15/20 potassium citrate 10 mEq (1,080 mg) tablet,extended release 10 meq PO BID #60 tab 06/15/20 tamsulosin 0.4 mg capsule 0.4 mg PO DAILY #30 cap 06/15/20 amlodipine 5 mg tablet 5 mg PO BID #30 tab 07/13/20 HYDROcodone/ACETAMINOPHEN [Hydrocodone-Acetamin 5-325 mg] 1 ea PO Q6H PRN #24 tab 07/24/20 HYDROcodone/ACETAMINOPHEN [Mat[place] 5-325] 1 ea PO Q6H PRN #60 tab 07/24/20 Polyethylene Glycol 3350 [Miralax] 17 gm PO DAILY PRN btl 07/24/20 Forms: Patient Portal Registration
[2020-07-24 13:12] VITALS: BP 135/61
[2020-07-24] MEDS ORDERED: TAMSULOSIN HCL 0.4 MG CAP.SR.24H PO SCH (17:00)
[2020-07-24] MEDS ORDERED: traZODone HCL 50 MG TABLET PO SCH (21:00)
[2020-07-24] MEDS ORDERED: SIMVASTATIN 20 MG TABLET PO SCH (21:00)
[2020-07-24] MEDS ORDERED: GABAPENTIN 300 MG CAPSULE PO SCH (21:00)
== END 2020-07-24 13:12 ==
LOC: MS 16:58 → ER 16:58 → MS 20:37
PROVIDERS: ADMIT Family Medicine; ATTEND Family Medicine